=== PATIENT | female | born 1990 | race American Indian/Alaskan Native ===

== ENCOUNTER 2020-06-11 20:21 | Emergency (ER) | payer SELFPAY ==
[2020-06-11] MEDS ORDERED: KETOROLAC 30 MG/1 ML INJ ONE (23:02)
[2020-06-11] MEDS ORDERED: MORPHINE 2 MG/1 ML INJ ONE (23:02)
[2020-06-11] MEDS ORDERED: MORPHINE 2 MG/1 ML INJ IV ONE (23:02)
[2020-06-11] MEDS ORDERED: ONDANSETRON 4 MG/2 ML INJ IV ONE (23:02)
[2020-06-11] MEDS ORDERED: KETOROLAC 30 MG/1 ML INJ IV ONE (23:02)
[2020-06-11] MEDS ORDERED: ONDANSETRON 4 MG/2 ML INJ ONE (23:02)
[2020-06-11 23:07] LABS: Alanine Aminotransferase 7 units/L (7-56); Albumin 4.4 g/dL (3.9-5); Blood Urea Nitrogen 9 mg/dL (7-17); Hemolysis Index 47
--- NOTE | 2020-06-11 23:16 | XRay Report ---
XR chest 1V ap INDICATION / CLINICAL INFORMATION: right side pain COMPARISON: 09/01/2019 FINDINGS: SUPPORT DEVICES: None. HEART / MEDIASTINUM: No significant abnormality. LUNGS / PLEURA: Lungs are clear. Costophrenic sulci are sharp. No pneumothorax. ADDITIONAL FINDINGS: No significant additional findings. IMPRESSION: 1. No acute findings. Signer Name: Ha Becerril MD Signed: 06/11/2020 11:12 PM Workstation Name: [email or web address]
[2020-06-11 23:17] LABS: Basophils % (Auto) 0.3 % (0.0-1.8); Eosinophils % (Auto) 0.1 % (0.0-4.3); Hematocrit 31.3 % (30.3-42.9); Hemoglobin 10.2 gm/dl (10.1-14.3); Lymphocytes # (Auto) 0.6 K/mm3 (1.2-5.4); Lymphocytes % (Auto) 6.6 % (13.4-35.0); Mean Corpuscular HGB Conc 33 % (30-34); Mean Corpuscular Volume 80 fl (79-97); Monocytes # (Auto) 0.4 K/mm3 (0.0-0.8); Monocytes % (Auto) 4.3 % (0.0-7.3); Platelet Count 160 K/mm3 (140-440)
[2020-06-11 23:19] LABS: BUN/Creatinine Ratio 18; Bilirubin,Direct < 0.2 mg/dL (0-0.2)
[2020-06-11 23:54] LABS: Bilirubin,Urine NEG (Negative); Blood,Urine NEG (Negative); Color,Urine Yellow (Yellow); Hyaline Casts,Urine 1 /LPF; Mucus,Urine FEW /HPF; Protein,Urine <15 mg/dL mg/dL (Negative)
--- NOTE | 2020-06-12 01:13 | Emergency Department Report ---
ED General Adult HPI - General Chief complaint: Abdominal Pain Stated complaint: DIFFICULTY BREATHING;ASTHMA Time Seen by Provider: 06/11/20 21:59 Source: patient Mode of arrival: Ambulatory Limitations: No Limitations - History of Present Illness Initial comments: 29-year-old female presents emerged department complaining of pain to the right flank/rib cage region which is worse with palpation and deep breaths. Ports no fever, chills, sweats. No hemoptysis, hematemesis hematochezia. No nausea, no vomiting, no chest pain or palpitations. Severity scale (0 -10): 4 - Related Data Previous Rx's Medication Instructions Recorded Last Taken Type Acetaminophen [Non-Aspirin Extra 500 mg PO Q6HR PRN #30 tablet 09/01/19 Unknown Rx Strength] Ibuprofen [Motrin] 400 mg PO Q8H PRN #30 tablet 09/01/19 Unknown Rx Magnesium Oxide 400 mg PO QDAY #30 tablet 09/01/19 Unknown Rx Potassium Chloride [K-Dur] 20 meq PO BID #30 tab 09/01/19 Unknown Rx Ketorolac [Toradol] 10 mg PO Q6H PRN #14 tablet 06/12/20 Unknown Rx Allergies Allergy/AdvReac Type Severity Reaction Status Date / Time No Known Drug Allergies Allergy Unknown Verified 09/01/19 03:39 ED Review of Systems ROS: Stated complaint: DIFFICULTY BREATHING;ASTHMA Other details as noted in HPI Comment: All other systems reviewed and negative ED Past Medical Hx - Past Medical History Previous Medical History?: Yes Hx Asthma: Yes - Surgical History Past Surgical History?: Yes Additional Surgical History: c-sec X 1 - Social History Smoking Status: Never Smoker Substance Use Type: None - Medications Home Medications: Home Medications Medication Instructions Recorded Confirmed Last Taken Type Acetaminophen [Non-Aspirin Extra 500 mg PO Q6HR PRN #30 tablet 09/01/19 Unknown Rx Strength] Ibuprofen [Motrin] 400 mg PO Q8H PRN #30 tablet 09/01/19 Unknown Rx Magnesium Oxide 400 mg PO QDAY #30 tablet 09/01/19 Unknown Rx Potassium Chloride [K-Dur] 20 meq PO BID #30 tab 09/01/19 Unknown Rx Ketorolac [Toradol] 10 mg PO Q6H PRN #14 tablet 06/12/20 Unknown Rx ED Physical Exam - General Limitations: No Limitations General appearance: alert, in no apparent distress - Head Head exam: Present: atraumatic, normocephalic - Eye Eye exam: Present: normal appearance, PERRL - ENT ENT exam: Present: normal exam, mucous membranes moist - Neck Neck exam: Present: normal inspection - Respiratory Respiratory exam: Present: normal lung sounds bilaterally. Absent: respiratory distress - Cardiovascular Cardiovascular Exam: Present: regular rate, normal rhythm. Absent: systolic murmur, diastolic murmur, rubs, gallop - GI/Abdominal GI/Abdominal exam: Present: soft, normal bowel sounds - Extremities Exam Extremities exam: Present: normal inspection - Back Exam Back exam: Present: normal inspection - Neurological Exam Neurological exam: Present: alert, oriented X3 - Psychiatric Psychiatric exam: Present: normal affect, normal mood - Skin Skin exam: Present: warm, dry, intact, normal color. Absent: rash ED Course Vital Signs 06/11/20 20:34 Temperature 99.0 F Pulse Rate 108 H Respiratory 24 Rate Blood Pressure 135/80 [Right] O2 Sat by Pulse 100 Oximetry ED Medical Decision Making - Lab Data Result diagrams: 06/11/20 11:15 06/11/20 Unknown Critical care attestation.: If time is entered above; I have spent that time in minutes in the direct care of this critically ill patient, excluding procedure time. ED Disposition Clinical Impression: Musculoskeletal pain, Flank pain, Costal margin pain Disposition: DC-01 TO HOME OR SELFCARE Is pt being admited?: No Does the pt Need Aspirin: No Condition: Stable Instructions: Abdominal Pain (ED), Nonspecific Chest Pain, Adult, Musculoskeletal Pain, Flank Pain, Adult, [id number] Prescriptions: Ketorolac [Toradol] 10 mg PO Q6H PRN #14 tablet PRN Reason: Pain Referrals: PRIMARY CARE, [Primary Care Provider] - 3-5 Days [facility] [Provider Group] - 3-5 Days
[2020-06-12 01:15] VITALS: BP 110/58
== END 2020-06-12 01:45 | disposition home or self-care (01) ==
LOC: ED 20:21
DX: M79.18 Myalgia, other site (principal); R07.81 Pleurodynia; R10.9 Unspecified abdominal pain; J45.909 Unspecified asthma, uncomplicated; Z79.899 Other long term (current) drug therapy; Z98.890 Other specified postprocedural states
CPT/HCPCS: 36415; 71045; 80048; 80076; 81001; 84703; 85025; 96374; 96375; 99284; J1885; J2270; J2405